=== PATIENT | female | born 1945 | race Caucasian/White ===

== ENCOUNTER 2016-10-15 06:47 | Inpatient (IN) | payer MEDICARE, MEDICAID ==
[~2016-10-15] VITALS: Ht 160 cm; Wt 100.8 kg
[2016-10-15] MEDS ORDERED: SODIUM CHLORIDE 0.9% 1,000 ML IV ONE (07:25)
[2016-10-15 07:51] LABS: HEMOGLOBIN 13.9 g/dL (11.7-16.4)
[2016-10-15 08:00] LABS: ASPARTATE AMINO TRANSFERASE 22 U/L (15-37); BLOOD UREA NITROGEN 18 mg/dL (7-18)
[2016-10-15 08:08] LABS: IS PT STATUS REG ER OR PRE ER? YES
[2016-10-15] MEDS ORDERED: LISI-170 PO (08:12)
[2016-10-15] MEDS ORDERED: LEVO25TA4 PO (08:12)
[2016-10-15] MEDS ORDERED: APIX2.5T PO (08:12)
[2016-10-15] MEDS ORDERED: ALBUTEROL/IPRATROPIUM 2.5MG/0.5MG, 3 ML NPPB ONE (09:30)
[2016-10-15] MEDS ORDERED: SODIUM CHLORIDE 0.9%, 500ML IVBOLUS ONE (09:30)
[2016-10-15] MEDS ORDERED: ALBUTEROL/IPRATROPIUM 2.5MG/0.5MG, 3 ML ONE (09:58)
[2016-10-15] MEDS ORDERED: ACETAMINOPHEN 325 MG TABLET PO PRN (11:00)
[2016-10-15] MEDS ORDERED: ONDANSETRON 2MG/ML, 2ML IVP PRN (11:00)
[2016-10-15] MEDS ORDERED: TEMAZEPAM 15 MG CAPSULE PO PRN (11:00)
[2016-10-15] MEDS: CEFTRIAXONE PMX 1GM/50ML 50 ML IV SCH ×2 (11:15→23:07)
[2016-10-15] MEDS ORDERED: CEFTRIAXONE PMX 1GM/50ML 50 ML ONE (11:16)
[2016-10-15] MEDS ORDERED: ALBUTEROL/IPRATROPIUM 2.5MG/0.5MG, 3 ML NPPB PRN (12:00)
[2016-10-15 13:00] VITALS: BP 137/76
[2016-10-15 13:09] VITALS: BP 147/82
[2016-10-15] MEDS: SODIUM CHLORIDE 0.9% 1,000 ML IV SCH (13:36)
[2016-10-15] MEDS: AZITHROMYCIN 500 MG in SODIUM CHLORIDE 0.9% 250 ML IV SCH (13:36)
[2016-10-15] MEDS: LACTOBACILLUS CHEW TABLET PO SCH ×2 (17:07→20:32)
[2016-10-15 18:51] VITALS: BP 133/79
[2016-10-15] MEDS: GUAIFENESIN/DM 200-20MG, 10ML UDC PO PRN (20:32)
[2016-10-15] MEDS: APIXABAN 2.5 MG TABLET PO SCH (20:32)
[2016-10-16 00:04] LABS: RAPID INFLUENZA A Negative (Negative); RAPID INFLUENZA B Negative (Negative)
[2016-10-16 02:16] VITALS: BP 172/78
[2016-10-16 05:24] LABS: BLOOD UREA NITROGEN 20 mg/dL (7-18)
[2016-10-16 07:25] VITALS: BP 155/71
[2016-10-16] MEDS: LACTOBACILLUS CHEW TABLET PO SCH ×3 (08:38→21:01)
[2016-10-16] MEDS: SODIUM CHLORIDE 0.9% 1,000 ML IV SCH ×2 (08:38→10:36)
[2016-10-16] MEDS: APIXABAN 2.5 MG TABLET PO SCH ×2 (08:38→21:01)
[2016-10-16] MEDS: LEVOTHYROXINE 25 MCG TABLET PO SCH (08:39)
[2016-10-16] MEDS: LISINOPRIL 20 MG TABLET PO SCH (08:39)
[2016-10-16] MEDS: FLUTICASONE/VILANTEROL 200-25MCG/INH INH SCH (10:21)
[2016-10-16] MEDS: CEFTRIAXONE PMX 1GM/50ML 50 ML IV SCH ×2 (11:22→23:24)
[2016-10-16] MEDS: AZITHROMYCIN 500 MG in SODIUM CHLORIDE 0.9% 250 ML IV SCH (13:27)
[2016-10-16 14:21] VITALS: BP 156/82
[2016-10-16 20:12] VITALS: BP_SYST 164; BP_SYST 172; BP_DIAS 73; BP_DIAS 95
[2016-10-16] MEDS ORDERED: LABETALOL 5MG/ML, 20ML IVPush ONE (20:30)
[2016-10-16 21:11] VITALS: BP 162/80
[2016-10-16] MEDS: GUAIFENESIN/DM 200-20MG, 10ML UDC PO PRN (21:20)
[2016-10-16 21:44] VITALS: BP 154/73
[2016-10-17] VITALS (8 sets, daily range): BP systolic 150–206; BP diastolic 80–110
[2016-10-17] MEDS ORDERED: LABETALOL 5MG/ML, 20ML IVPush PRN (01:30)
[2016-10-17] MEDS ORDERED: LABETALOL 20 MG/4 ML IVPush PRN (01:43)
[2016-10-17 05:05] LABS: HEMOGLOBIN 12.4 g/dL (11.7-16.4)
[2016-10-17 05:15] LABS: BLOOD UREA NITROGEN 23 mg/dL (7-18)
[2016-10-17] MEDS: SODIUM CHLORIDE 0.9% 1,000 ML IV SCH (08:21)
[2016-10-17] MEDS: APIXABAN 2.5 MG TABLET PO SCH ×2 (08:23→20:49)
[2016-10-17] MEDS: LACTOBACILLUS CHEW TABLET PO SCH ×3 (08:23→20:49)
[2016-10-17] MEDS: LISINOPRIL 20 MG TABLET PO SCH (08:23)
[2016-10-17] MEDS: FLUTICASONE/VILANTEROL 200-25MCG/INH INH SCH (08:23)
[2016-10-17] MEDS: LEVOTHYROXINE 25 MCG TABLET PO SCH (08:24)
[2016-10-17] MEDS: CEFTRIAXONE PMX 1GM/50ML 50 ML IV SCH ×2 (11:21→23:08)
[2016-10-17] MEDS: AZITHROMYCIN 500 MG in SODIUM CHLORIDE 0.9% 250 ML IV SCH (13:17)
[2016-10-17] MEDS ORDERED: ALBUTEROL SULFATE 2.5 MG/3 ML NPPB PRN (13:30)
[2016-10-17] MEDS: GUAIFENESIN/DM 200-20MG, 10ML UDC PO PRN (20:50)
[2016-10-17] MEDS: hydrALAzine 20 MG/ML, 1ML IV PRN (20:52)
[2016-10-18 01:36] VITALS: BP_SYST 145; BP_SYST 173; BP_DIAS 86; BP_DIAS 92
[2016-10-18] MEDS: SODIUM CHLORIDE 0.9% 1,000 ML IV SCH (03:35)
[2016-10-18 05:33] LABS: HEMOGLOBIN 12.5 g/dL (11.7-16.4)
[2016-10-18 05:44] LABS: BLOOD UREA NITROGEN 23 mg/dL (7-18)
[2016-10-18 07:38] VITALS: BP 189/80
[2016-10-18] MEDS: LISINOPRIL 20 MG TABLET PO SCH (08:42)
[2016-10-18] MEDS: APIXABAN 2.5 MG TABLET PO SCH ×2 (08:42→21:22)
[2016-10-18] MEDS: LACTOBACILLUS CHEW TABLET PO SCH ×3 (08:42→21:22)
[2016-10-18] MEDS: LEVOTHYROXINE 25 MCG TABLET PO SCH (08:42)
[2016-10-18] MEDS: hydrALAzine 20 MG/ML, 1ML IV PRN (08:43)
[2016-10-18] MEDS: GUAIFENESIN/DM 200-20MG, 10ML UDC PO PRN (08:44)
[2016-10-18] MEDS: FLUTICASONE/VILANTEROL 200-25MCG/INH INH SCH (09:09)
[2016-10-18] MEDS: AMLODIPINE 2.5 MG TABLET PO SCH (11:54)
[2016-10-18] MEDS: CEFTRIAXONE PMX 1GM/50ML 50 ML IV SCH ×2 (11:56→23:46)
[2016-10-18 14:00] VITALS: BP 152/80
[2016-10-18] MEDS: AZITHROMYCIN 500 MG in SODIUM CHLORIDE 0.9% 250 ML IV SCH (14:04)
[2016-10-18 19:27] VITALS: BP_SYST 160; BP_SYST 168; BP_DIAS 74; BP_DIAS 80
[2016-10-19 00:30] VITALS: BP 137/76
[2016-10-19 05:44] LABS: HEMOGLOBIN 12.8 g/dL (11.7-16.4)
[2016-10-19 06:02] LABS: BLOOD UREA NITROGEN 30 mg/dL (7-18)
[2016-10-19 07:49] VITALS: BP 182/96
[2016-10-19] MEDS: FLUTICASONE/VILANTEROL 200-25MCG/INH INH SCH (07:51)
[2016-10-19] MEDS: APIXABAN 2.5 MG TABLET PO SCH ×2 (07:51→19:42)
[2016-10-19] MEDS: LACTOBACILLUS CHEW TABLET PO SCH ×3 (07:52→19:42)
[2016-10-19] MEDS: AMLODIPINE 2.5 MG TABLET PO SCH (07:52)
[2016-10-19] MEDS: LEVOTHYROXINE 25 MCG TABLET PO SCH (07:53)
[2016-10-19] MEDS: LISINOPRIL 20 MG TABLET PO SCH (07:53)
[2016-10-19] MEDS: CEFTRIAXONE PMX 1GM/50ML 50 ML IV SCH ×2 (11:48→23:00)
[2016-10-19 13:08] VITALS: BP 184/79
[2016-10-19] MEDS: AZITHROMYCIN 500 MG in SODIUM CHLORIDE 0.9% 250 ML IV SCH (13:16)
[2016-10-19 13:59] VITALS: BP_SYST 157; BP_SYST 171; BP_DIAS 78; BP_DIAS 89
[2016-10-19] MEDS: hydrALAzine 20 MG/ML, 1ML IV PRN (14:00)
[2016-10-19 15:32] VITALS: BP 133/75
[2016-10-19 18:38] VITALS: BP 160/80
[2016-10-20 01:53] VITALS: BP 186/92
[2016-10-20 02:41] VITALS: BP 191/106
[2016-10-20] MEDS: CEFTRIAXONE PMX 1GM/50ML 50 ML IV SCH ×2 (03:50→11:05)
[2016-10-20 04:02] LABS: HEMOGLOBIN 12.6 g/dL (11.7-16.4)
[2016-10-20 04:07] LABS: BLOOD UREA NITROGEN 28 mg/dL (7-18)
[2016-10-20] MEDS ORDERED: LEVOTHYROXINE 25 MCG TABLET PO SCH (06:00)
[2016-10-20 06:13] VITALS: BP 135/81
[2016-10-20 07:50] VITALS: BP 130/72
[2016-10-20] MEDS: APIXABAN 2.5 MG TABLET PO SCH (08:04)
[2016-10-20] MEDS: LACTOBACILLUS CHEW TABLET PO SCH (08:04)
[2016-10-20] MEDS: AMLODIPINE 2.5 MG TABLET PO SCH (08:05)
[2016-10-20] MEDS: LISINOPRIL 20 MG TABLET PO SCH (08:05)
[2016-10-20] MEDS: FLUTICASONE/VILANTEROL 200-25MCG/INH INH SCH (08:05)
[2016-10-20] MEDS ORDERED: FLUT1BLS INH (11:07)
[2016-10-20] MEDS ORDERED: AMLO2.5T PO (11:07)
[2016-10-20] MEDS ORDERED: ALBU2.5V NPPB (11:07)
[2016-10-20] MEDS ORDERED: PRED20TA PO (11:07)
[2016-10-20] MEDS ORDERED: AZIT500T4 PO (11:08)
[2016-10-20 11:30] VITALS: BP 170/83
[2016-10-20] MEDS ORDERED: PNEUMOCOCCAL 23 VACCINE IM-VACC ONE (11:30)
[2016-10-20] MEDS ORDERED: FLU VACC QS2016-17 (36MOS+)UP/PF 0.5 ML IM-VACC ONE (11:30)
[2016-10-20 13:43] VITALS: BP 167/77
== END 2016-10-20 14:09 | disposition home or self-care (01) | DRG 682 ==
LOC: ED 07:56 → EDIP 10:45 → SUATTDRO 10:49 → 3NE 12:14
DX: N17.0 Acute kidney failure with tubular necrosis (principal); J18.9 Pneumonia, unspecified organism; J96.01 Acute respiratory failure with hypoxia; E44.0 Moderate protein-calorie malnutrition; D68.59 Other primary thrombophilia; J44.0 Chronic obstructive pulmonary disease with (acute) lower respiratory infection; J44.1 Chronic obstructive pulmonary disease with (acute) exacerbation; F17.210 Nicotine dependence, cigarettes, uncomplicated; R73.9 Hyperglycemia, unspecified; E89.0 Postprocedural hypothyroidism; I12.9 Hypertensive chronic kidney disease with stage 1 through stage 4 chronic kidney disease, or unspecified chronic kidney disease; I25.10 Atherosclerotic heart disease of native coronary artery without angina pectoris; N18.9 Chronic kidney disease, unspecified; Z66 Do not resuscitate; Z79.01 Long term (current) use of anticoagulants; Z86.73 Personal history of transient ischemic attack (TIA), and cerebral infarction without residual deficits; Z68.39 Body mass index [BMI] 39.0-39.9, adult; Z28.21 Immunization not carried out because of patient refusal; Z86.718 Personal history of other venous thrombosis and embolism; Z90.49 Acquired absence of other specified parts of digestive tract; Z82.49 Family history of ischemic heart disease and other diseases of the circulatory system; Z84.89 Family history of other specified conditions
CPT/HCPCS: 36415; 71020; 80048; 80053; 83735; 83880; 84484; 85025; 87070; 87205; 87400; 93005; 94640; 96361; 96365; J0456; J0696; J7613; J7620; J0360; J7030; J7050; J7512

== ENCOUNTER → 2017-03-17 | Outpatient (CLI) | payer MEDICARE, MEDICAID ==
[~2017-03-17] MED LIST: ALBU2.5V NPPB; AMLO2.5T PO; APIX2.5T PO; AZIT500T5 PO; FLUT1BLS INH; LEVO25TA4 PO; LISI-170 PO; PRED20TA PO; REGADENOSON 0.4 MG/5 ML SYRINGE ONE
== END | disposition home or self-care (01) ==
LOC: CVU 06:36
PROVIDERS: ATTEND Internal Medicine Cardiovascular Disease
DX: I65.23 Occlusion and stenosis of bilateral carotid arteries (principal); I63.9 Cerebral infarction, unspecified; I25.10 Atherosclerotic heart disease of native coronary artery without angina pectoris; I10 Essential (primary) hypertension
CPT/HCPCS: 78452; 93017; 93880; A9502; J2785

== ENCOUNTER 2017-07-27 22:17 | Inpatient (IN) | payer MEDICARE, MEDICAID ==
[~2017-07-27] VITALS: Ht 160 cm; Wt 95.9 kg
[~2017-07-27 22:17] MED LIST changes: -REGADENOSON 0.4 MG/5 ML SYRINGE ONE
[2017-07-27] MEDS ORDERED: SODIUM CHLORIDE 0.9% 1,000 ML IV ONE (22:41)
[2017-07-27] MEDS ORDERED: SODIUM CHLORIDE FLUSH 10ML SYR IVF ONE (23:00)
[2017-07-27 23:17] LABS: BASOPHILS % (AUTO) 1 % (0-1); EOSINOPHILS # (AUTO) 0.13 x10^3/uL (0-0.4); EOSINOPHILS % (AUTO) 1 % (1-7); LYMPHOCYTES # (AUTO) 3.37 x10^3/uL (1-3.4); LYMPHOCYTES % (AUTO) 32 % (22-44); MD NO; MEAN CORPUSCULAR HEMOGLOBIN 34.1 pg (27.0-34.8); MEAN CORPUSCULAR HGB CONC 33.5 g/dL (32.4-35.8); MEAN CORPUSCULAR VOLUME 101.9 fL (80-100); MEAN PLATELET VOLUME 7.9 fL (7.4-10.4); MONOCYTES # (AUTO) 0.53 x10^3/uL (0.2-0.8); MONOCYTES % (AUTO) 5 % (2-9); NEUTROPHILS # (AUTO) 6.55 x10^3/uL (1.8-6.8); NEUTROPHILS % (AUTO) 61 % (42-75); PLATELET COUNT 160 x10^3/uL (130-400); RED BLOOD COUNT 4.32 x10^6/uL (3.82-5.3); RED CELL DISTRIBUTION WIDTH 15.2 % (9.6-15.2)
[2017-07-27 23:29] LABS: ALANINE AMINOTRANSFERASE 26 U/L (12-78); ALBUMIN 3.6 g/dL (3.4-5.0); ANION GAP 7 mmol/L (5-15); CALCIUM 8.6 mg/dL (8.5-10.1); CHLORIDE 105 mmol/L (98-107); CREATININE 2.02 mg/dL (0.55-1.02)
[2017-07-27 23:33] LABS: ALKALINE PHOSPHATASE 121 U/L (45-117); BILIRUBIN,TOTAL 0.2 mg/dL (0.2-1.0); TROPONIN I < 0.015 ng/mL (0.000-0.045)
[2017-07-27 23:41] LABS: INTERNATIONAL NORMALIZED RATIO 0.98 (0.93-1.1); PROTHROMBIN TIME 10.2 Seconds (9.6-11.5)
[2017-07-28 00:33] LABS: MICROSCOPIC INDICATED
[2017-07-28 00:41] LABS: CULTURE INDICATED? YES
[2017-07-28 02:03] VITALS: BP 119/77
[2017-07-28] MEDS ORDERED: DEXTROSE 50%, 50ML SYRINGE IVPush PRN (02:30)
[2017-07-28] MEDS ORDERED: ALBUTEROL SULFATE 2.5 MG/3 ML NPPB PRN (02:30)
[2017-07-28] MEDS ORDERED: BISACODYL 10 MG SUPP PR PRN (02:30)
[2017-07-28] MEDS ORDERED: GLUCAGON 1 MG IM PRN (02:30)
[2017-07-28] MEDS ORDERED: DEXTROSE 4 GM TAB.CHEW PO PRN (02:30)
[2017-07-28] MEDS ORDERED: POLYETHYLENE GLYCOL 17 GM PACKET PO PRN (02:30)
[2017-07-28] MEDS ORDERED: ACETAMINOPHEN 325 MG TABLET PO PRN (02:30)
[2017-07-28 03:31] LABS: FOLATE LEVEL > 20.0 ng/mL (3.1-17.5)
[2017-07-28 07:00] VITALS: BP 133/80
[2017-07-28] MEDS: INSULIN ASPART 100 UNITS/ML, PEN SQ-INSULIN SCH ×4 (07:00→21:00)
[2017-07-28] MEDS: APIXABAN 2.5 MG TABLET PO SCH ×2 (07:54→21:04)
[2017-07-28] MEDS: SODIUM CHLORIDE FLUSH 10ML SYR IVF SCH ×2 (07:55→21:04)
[2017-07-28] MEDS: LISINOPRIL 20 MG TABLET PO SCH (07:55)
[2017-07-28] MEDS: FLUTICASONE/VILANTEROL 200-25MCG/INH INH SCH (09:00)
[2017-07-28] MEDS ORDERED: CARVEDILOL 3.125 MG TABLET PO SCH (09:00)
[2017-07-28] MEDS: ALBUTEROL SULFATE 2.5 MG/3 ML NPPB SCH ×3 (11:00→20:00)
[2017-07-28] MEDS: CEFTRIAXONE PMX 1GM/50ML 50 ML IV SCH (13:30)
[2017-07-28 13:34] VITALS: BP 169/140
[2017-07-28 14:28] VITALS: BP 117/72
[2017-07-28] MEDS ORDERED: ATOR-2 PO (17:32)
[2017-07-28] MEDS ORDERED: SITA25TA PO (17:32)
[2017-07-28] MEDS ORDERED: GABA300C10 PO (17:32)
[2017-07-28] MEDS ORDERED: FURO20TA3 PO (17:32)
[2017-07-28] MEDS ORDERED: CARV3.122 PO (17:32)
[2017-07-28 19:07] VITALS: BP 115/72
[2017-07-28] MEDS: ATORVASTATIN 80 MG TABLET PO SCH (21:04)
[2017-07-29 02:51] VITALS: BP 109/68
[2017-07-29 05:04] LABS: ANION GAP 4 mmol/L (5-15); CALCIUM 7.9 mg/dL (8.5-10.1); CHLORIDE 112 mmol/L (98-107); CHOLESTEROL, TOTAL 103 mg/dL (140-239); CREATININE 1.41 mg/dL (0.55-1.02); TRIGLYCERIDES 133 mg/dL (50-200); VLDL CHOLESTEROL 27 mg/dL (0-25)
[2017-07-29 05:06] LABS: CHOL/HDL RATIO 2.6; HDL CHOL % 38 % (28-40); HDL CHOLESTEROL (DIRECT) 39 mg/dL (40-60); LDL CHOLESTEROL,CALCULATED 37 mg/dL (54-169); LDL/HDL RATIO 0.9 (0.5-3.0)
[2017-07-29] MEDS: LEVOTHYROXINE 25 MCG TABLET PO SCH ×2 (06:18→08:07)
[2017-07-29] MEDS: INSULIN ASPART 100 UNITS/ML, PEN SQ-INSULIN SCH ×4 (07:00→21:00)
[2017-07-29] MEDS: ALBUTEROL SULFATE 2.5 MG/3 ML NPPB SCH (07:16)
[2017-07-29 07:35] VITALS: BP 141/75
[2017-07-29] MEDS: SODIUM CHLORIDE FLUSH 10ML SYR IVF SCH ×2 (08:06→21:22)
[2017-07-29] MEDS: FLUTICASONE/VILANTEROL 200-25MCG/INH INH SCH (08:06)
[2017-07-29] MEDS: APIXABAN 2.5 MG TABLET PO SCH ×2 (08:07→21:22)
[2017-07-29] MEDS: LISINOPRIL 20 MG TABLET PO SCH (08:07)
[2017-07-29] MEDS: CEFTRIAXONE PMX 1GM/50ML 50 ML IV SCH (14:15)
[2017-07-29 15:24] VITALS: BP 137/77
[2017-07-29 19:37] VITALS: BP 132/78
[2017-07-29] MEDS: ATORVASTATIN 80 MG TABLET PO SCH (21:22)
[2017-07-30 00:39] VITALS: BP 118/71
[2017-07-30 05:06] LABS: BASOPHILS # (AUTO) 0.04 x10^3/uL (0-0.1); BASOPHILS % (AUTO) 1 % (0-1); EOSINOPHILS # (AUTO) 0.11 x10^3/uL (0-0.4); EOSINOPHILS % (AUTO) 1 % (1-7); LYMPHOCYTES # (AUTO) 3.11 x10^3/uL (1-3.4); LYMPHOCYTES % (AUTO) 37 % (22-44); MD NO; MEAN CORPUSCULAR HEMOGLOBIN 33.5 pg (27.0-34.8); MEAN CORPUSCULAR HGB CONC 32.8 g/dL (32.4-35.8); MEAN CORPUSCULAR VOLUME 102.4 fL (80-100); MEAN PLATELET VOLUME 7.8 fL (7.4-10.4); MONOCYTES # (AUTO) 0.52 x10^3/uL (0.2-0.8); MONOCYTES % (AUTO) 6 % (2-9); NEUTROPHILS # (AUTO) 4.58 x10^3/uL (1.8-6.8); NEUTROPHILS % (AUTO) 55 % (42-75); PLATELET COUNT 130 x10^3/uL (130-400); RED BLOOD COUNT 3.94 x10^6/uL (3.82-5.3); RED CELL DISTRIBUTION WIDTH 15.4 % (9.6-15.2)
[2017-07-30 05:15] LABS: CHLORIDE 108 mmol/L (98-107)
[2017-07-30 05:21] LABS: ANION GAP 5 mmol/L (5-15); CALCIUM 8.2 mg/dL (8.5-10.1); CREATININE 1.43 mg/dL (0.55-1.02)
[2017-07-30] MEDS ORDERED: ALBUTEROL SULFATE 2.5 MG/3 ML NPPB PRN (07:00)
[2017-07-30] MEDS ORDERED: ALBUTEROL SULFATE 2.5 MG/3 ML NPPB SCH (07:00)
[2017-07-30] MEDS: INSULIN ASPART 100 UNITS/ML, PEN SQ-INSULIN SCH ×2 (07:00→11:00)
[2017-07-30] MEDS: LEVOTHYROXINE 25 MCG TABLET PO SCH (07:56)
[2017-07-30] MEDS: FLUTICASONE/VILANTEROL 200-25MCG/INH INH SCH (07:56)
[2017-07-30] MEDS: SODIUM CHLORIDE FLUSH 10ML SYR IVF SCH (07:56)
[2017-07-30] MEDS: APIXABAN 2.5 MG TABLET PO SCH (07:57)
[2017-07-30] MEDS: LISINOPRIL 20 MG TABLET PO SCH (07:57)
[2017-07-30 08:35] VITALS: BP 109/68
[2017-07-30] MEDS ORDERED: NICO-487 TD (11:22)
[2017-07-30] MEDS: CEFTRIAXONE PMX 1GM/50ML 50 ML IV SCH (13:35)
[2017-07-30 14:39] VITALS: BP 146/79
== END 2017-07-30 15:26 | disposition home or self-care (01) | DRG 555 ==
LOC: ED 23:59 → EDIP 07-28 01:08 → 3NW 07-28 01:57
PROVIDERS: ADMIT Family Medicine; ATTEND Family Medicine
DX: M62.81 Muscle weakness (generalized) (principal); N17.0 Acute kidney failure with tubular necrosis; F05 Delirium due to known physiological condition; N39.0 Urinary tract infection, site not specified; Z86.74 Personal history of sudden cardiac arrest; E11.9 Type 2 diabetes mellitus without complications; J44.9 Chronic obstructive pulmonary disease, unspecified; E86.0 Dehydration; F17.200 Nicotine dependence, unspecified, uncomplicated; I25.10 Atherosclerotic heart disease of native coronary artery without angina pectoris; I44.0 Atrioventricular block, first degree; E03.9 Hypothyroidism, unspecified; G47.33 Obstructive sleep apnea (adult) (pediatric); I10 Essential (primary) hypertension; I25.2 Old myocardial infarction; I65.29 Occlusion and stenosis of unspecified carotid artery; I77.1 Stricture of artery; R09.02 Hypoxemia; Z79.01 Long term (current) use of anticoagulants; Z86.73 Personal history of transient ischemic attack (TIA), and cerebral infarction without residual deficits; Z91.19 Patient's noncompliance with other medical treatment and regimen; Z88.0 Allergy status to penicillin; Z90.49 Acquired absence of other specified parts of digestive tract
CPT/HCPCS: 36415; 70450; 70551; 71045; 80048; 80053; 80061; 81001; 82140; 82607; 82746; 82962; 84443; 84484; 85025; 85610; 85730; 87086; 93005; 94640; 96360; 96361; J0696; J1815; J7613; J7030

== ENCOUNTER 2017-10-17 09:02 | Emergency (ER) | payer MEDICARE, MEDICAID ==
[~2017-10-17] VITALS: Ht 160 cm; Wt 92.0 kg
[~2017-10-17 09:02] MED LIST changes: +ATOR-2 PO; +CARV3.122 PO; +FURO20TA3 PO; +GABA300C10 PO; +NICO-487 TD; +SITA25TA PO
[2017-10-17 10:13] LABS: BASOPHILS # (AUTO) 0.02 x10^3/uL (0-0.1); BASOPHILS % (AUTO) 0 % (0-1); EOSINOPHILS # (AUTO) 0.12 x10^3/uL (0-0.4); EOSINOPHILS % (AUTO) 1 % (1-7); LYMPHOCYTES # (AUTO) 3.03 x10^3/uL (1-3.4); LYMPHOCYTES % (AUTO) 36 % (22-44); MD NO; MEAN CORPUSCULAR HEMOGLOBIN 33.2 pg (27.0-34.8); MEAN CORPUSCULAR HGB CONC 33.3 g/dL (32.4-35.8); MEAN CORPUSCULAR VOLUME 99.8 fL (80-100); MEAN PLATELET VOLUME 7.8 fL (7.4-10.4); MONOCYTES # (AUTO) 0.47 x10^3/uL (0.2-0.8); MONOCYTES % (AUTO) 6 % (2-9); NEUTROPHILS # (AUTO) 4.69 x10^3/uL (1.8-6.8); NEUTROPHILS % (AUTO) 56 % (42-75); PLATELET COUNT 141 x10^3/uL (130-400); RED BLOOD COUNT 4.12 x10^6/uL (3.82-5.3); RED CELL DISTRIBUTION WIDTH 15.4 % (9.6-15.2)
[2017-10-17 10:22] LABS: MICROSCOPIC INDICATED
[2017-10-17 10:26] LABS: ALBUMIN 3.7 g/dL (3.4-5.0); ANION GAP 6 mmol/L (5-15); CALCIUM 8.5 mg/dL (8.5-10.1); CHLORIDE 108 mmol/L (98-107)
[2017-10-17 10:30] LABS: AMPHETAMINE SCREEN, URINE Negative (Negative); BARBITURATE SCREEN, URINE Negative (Negative); BENZODIAZEPINE SCREEN, URINE Negative (Negative); CANNABINOID SCREEN, URINE Negative (Negative); COCAINE SCREEN, URINE Negative (Negative); METHADONE SCREEN, URINE Negative (Negative); OPIATE SCREEN, URINE Negative (Negative)
[2017-10-17 10:30] LABS: ALANINE AMINOTRANSFERASE 26 U/L (12-78); ALKALINE PHOSPHATASE 106 U/L (45-117); BILIRUBIN,TOTAL 0.4 mg/dL (0.2-1.0); CREATININE 1.89 mg/dL (0.55-1.02); TOTAL PROTEIN 7.9 g/dL (6.4-8.2)
[2017-10-17 10:31] LABS: CULTURE INDICATED? NO
[2017-10-17 11:26] LABS: FREE T4 (FREE THYROXINE) 1.07 ng/dL (0.76-1.46); THYROID STIMULATING HORMONE 2.75 mIU/L (0.358-3.740)
[2017-10-17] MEDS ORDERED: SODIUM CHLORIDE 0.9% 1,000ML IVBOLUS ONE (12:00)
[2017-10-17 12:44] VITALS: BP 129/58
== END 2017-10-17 13:21 | disposition home or self-care (01) ==
LOC: ED 11:29
DX: E86.0 Dehydration (principal); N28.9 Disorder of kidney and ureter, unspecified; R53.1 Weakness; J44.9 Chronic obstructive pulmonary disease, unspecified; E11.9 Type 2 diabetes mellitus without complications; E78.00 Pure hypercholesterolemia, unspecified; I10 Essential (primary) hypertension; Z86.718 Personal history of other venous thrombosis and embolism; Z86.73 Personal history of transient ischemic attack (TIA), and cerebral infarction without residual deficits; F17.210 Nicotine dependence, cigarettes, uncomplicated; I25.2 Old myocardial infarction; Z79.899 Other long term (current) drug therapy
CPT/HCPCS: 36415; 36600; 71045; 80053; 80307; 81001; 82140; 82803; 83605; 84439; 84443; 85025; 87040; 93005; 96360; 99285; J7030

== ENCOUNTER → 2018-02-27 | Outpatient (CLI) | payer MEDICARE, MEDICAID | END | disposition home or self-care (01) | LOC: CFH 09:44 | PROVIDERS: ATTEND Family Medicine | DX: J98.4 Other disorders of lung (principal); N28.1 Cyst of kidney, acquired | CPT/HCPCS: 71250 ==

== ENCOUNTER 2019-06-13 10:31 | Emergency (ER) | payer MEDICARE, MEDICAID ==
[~2019-06-13] VITALS: Ht 157.5 cm; Wt 93.5 kg
[~2019-06-13 10:31] MED LIST changes: -AMLO2.5T PO; +AMLO2.5T5 PO; +AZIT500T10 PO; -AZIT500T5 PO
[2019-06-13] MEDS ORDERED: ALBUTEROL/IPRATROPIUM 2.5MG/0.5MG, 3 ML ONE (10:59)
[2019-06-13] MEDS: ALBUTEROL/IPRATROPIUM 2.5MG/0.5MG, 3 ML NPPB SCH ×2 (11:00→11:07)
--- NOTE | 2019-06-13 11:05 | NUR ---
BREAK RN: PT TO X RAY. PT MEDICATED PER ORDER. PT ON 2 LPM O2 VIA NC WHICH SHE WEARS AT HOME.
[2019-06-13] MEDS ORDERED: SODIUM CHLORIDE FLUSH 10ML SYR IVF ONE (11:30)
[2019-06-13 11:41] LABS: RAPID INFLUENZA A Negative (Negative); RAPID INFLUENZA B Negative (Negative)
[2019-06-13 11:47] LABS: BASOPHILS # (AUTO) 0.04 x10^3/uL (0-0.1); BASOPHILS % (AUTO) 1 % (0-1); EOSINOPHILS # (AUTO) 0.11 x10^3/uL (0-0.4); EOSINOPHILS % (AUTO) 1 % (1-7); LYMPHOCYTES # (AUTO) 3.23 x10^3/uL (1-3.4); LYMPHOCYTES % (AUTO) 42 % (22-44); MD NO; MEAN CORPUSCULAR HEMOGLOBIN 34.3 pg (27.0-34.8); MEAN CORPUSCULAR HGB CONC 32.5 g/dL (32.4-35.8); MEAN CORPUSCULAR VOLUME 105.5 fL (80-100); MEAN PLATELET VOLUME 7.4 fL (7.4-10.4); MONOCYTES % (AUTO) 8 % (2-9); NEUTROPHILS # (AUTO) 3.81 x10^3/uL (1.8-6.8); NEUTROPHILS % (AUTO) 49 % (42-75); PLATELET COUNT 148 x10^3/uL (130-400); RED BLOOD COUNT 3.66 x10^6/uL (3.82-5.3); RED CELL DISTRIBUTION WIDTH 15.4 % (9.6-15.2)
[2019-06-13 11:56] LABS: ALBUMIN 3.5 g/dL (3.4-5.0); CALCIUM 8.2 mg/dL (8.5-10.1); CREATININE 1.78 mg/dL (0.55-1.02)
--- NOTE | 2019-06-13 12:00 | NUR ---
CONTINUES TO HAVE WHEEZING SINCE TX BUT IMPROVED. SPEAKING IN FULL SENTENCES.
[2019-06-13 12:06] LABS: ANION GAP 3 mmol/L (5-15); CHLORIDE 107 mmol/L (98-107)
--- NOTE | 2019-06-13 12:40 | NUR ---
AWAITING DISPO. PROVIDED COFFEE.
[2019-06-13 12:59] VITALS: BP 121/58
== END 2019-06-13 13:10 | disposition home or self-care (01) ==
LOC: ED 13:00
DX: J44.1 Chronic obstructive pulmonary disease with (acute) exacerbation (principal); J15.9 Unspecified bacterial pneumonia; I10 Essential (primary) hypertension; E11.9 Type 2 diabetes mellitus without complications; I25.2 Old myocardial infarction; Z86.73 Personal history of transient ischemic attack (TIA), and cerebral infarction without residual deficits; F17.210 Nicotine dependence, cigarettes, uncomplicated; Z88.0 Allergy status to penicillin; Z88.8 Allergy status to other drugs, medicaments and biological substances
CPT/HCPCS: 36415; 71046; 80048; 82040; 83605; 84145; 85025; 87040; 87400; 94640; 99284; J7512; J7620